=== PATIENT | female | born 1980 | race Caucasian/White ===

== ENCOUNTER 2021-08-26 13:22 | Outpatient (CLI) | payer BC | END 2021-08-26 13:23 | disposition home or self-care (01) | LOC: CSHMAMMO 13:22 | PROVIDERS: ATTEND Obstetrics & Gynecology | DX: R92.8 Other abnormal and inconclusive findings on diagnostic imaging of breast (principal); N63.11 Unspecified lump in the right breast, upper outer quadrant | CPT/HCPCS: 77066; G0279 ==

== ENCOUNTER 2022-09-01 10:29 | Outpatient (CLI) | payer BC | END 2022-09-01 10:30 | disposition home or self-care (01) | LOC: CSHMAMMO 10:29 | PROVIDERS: ATTEND Obstetrics & Gynecology | DX: Z12.31 Encounter for screening mammogram for malignant neoplasm of breast (principal); N63.10 Unspecified lump in the right breast, unspecified quadrant | CPT/HCPCS: 77063; 77067 ==

== ENCOUNTER 2023-12-15 15:45 | Outpatient (CLI) | payer BC | END 2023-12-15 15:46 | disposition home or self-care (01) | LOC: CSHMAMMO 15:45 | PROVIDERS: ATTEND Obstetrics & Gynecology | DX: Z12.31 Encounter for screening mammogram for malignant neoplasm of breast (principal) | CPT/HCPCS: 77063; 77067 ==

== ENCOUNTER 2025-05-17 12:15 | Outpatient (CLI) | payer BC | END 2025-05-17 12:16 | disposition home or self-care (01) | LOC: CSHMAMMO 12:15 | PROVIDERS: ATTEND Obstetrics & Gynecology | DX: Z12.31 Encounter for screening mammogram for malignant neoplasm of breast (principal) | CPT/HCPCS: 77063; 77067 ==